=== PATIENT | female | born 1995 | race Two or more races ===

== ENCOUNTER 2016-08-15 11:31 | Emergency (ER) | payer OTHER ==
[2016-08-15 11:35] VITALS: BP 108/75
--- NOTE | 2016-08-15 11:37 | PHYS DOC ---
Past History Past Medical History: No Pertinent History Past Surgical History: No Surgical History Alcohol Use: None Drug Use: None Adult General Chief Complaint Chief Complaint: NAUSEA/VOMITING/DIARRHEA HPI HPI 20-year-old female presenting to the emergency department for evaluation of nausea vomiting diarrhea and abdominal cramping. Patient says that she woke up with these symptoms and says that she vomited yellowish liquid the first time and has been dry heaving since that time. Diarrhea is watery and nonbloody. She had a steroid injection in her left shoulder yesterday and is concerned that this is somehow related to her symptoms today. She says that she feels slightly dizzy and still nauseated. Abdominal cramping is diffuse and nonfocal and comes and goes. Review of Systems Review of Systems Constitutional: Denies fever or chills [] GI: + abdominal pain, nausea, vomiting, diarrhea [] : Denies dysuria or hematuria [] Musculoskeletal: Denies back pain or joint pain [] Integument: Denies rash or skin lesions [] Neurologic: Denies headache, focal weakness. + dizziness Allergies Allergies Allergies Coded Allergies Type Severity Reaction Last Updated Verified No Known Drug Allergies 07/22/15 No Physical Exam Physical Exam Constitutional: Well developed, well nourished, no acute distress, non-toxic appearance. [] Cardiovascular:Heart rate regular rhythm, no murmur [] Lungs & Thorax: Bilateral breath sounds clear to auscultation [] Abdomen: Bowel sounds normal, soft, no tenderness, no masses, no pulsatile masses. [] Skin: Warm, dry, no erythema, no rash. Left shoulder appears clean dry and intact with no redness or warmth or swelling. Extremities: No tenderness, no cyanosis, no clubbing, ROM intact, no edema. [] Neurologic: Alert and oriented X 3, normal motor function, normal sensory function, no focal deficits noted. [] EKG EKG [] Radiology/Procedures Radiology/Procedures [] Course & Med Decision Making Course & Med Decision Making Patient with symptoms consistent with a viral gastroenteritis. I do not think that this has anything to do with her steroid shot isn't looked up cortisone and and had no listed side effects of nausea vomiting or diarrhea. It may be blunting her immune response to any viral infection but not necessarily caused it. Patient will get screening labs IV fluids Zofran and Toradol and then be reassessed. Labs are very unremarkable she has leukocytosis likely related to steroid. Her repeat abdominal exam is benign and she is not drinking water and eating crackers without any difficulty swallowing discharge her with Zofran and instructed to drink plenty of fluids including water and Gatorade and come back to the ER sooner with any worsening pain fevers vomiting or additional concerns. Patientt aware and agreeable with plan and verbalized understanding of the above instructions. Dragon Disclaimer Dragon Disclaimer This chart was dictated in whole or in part using Voice Recognition software in a busy, high-work load, and often noisy Emergency Department environment. It may contain unintended and wholly unrecognized errors or omissions. Departure Departure: Impression: Primary Impression: Nausea & vomiting Additional Impressions: Diarrhea Abdominal pain Disposition: 01 HOME, SELF-CARE Condition: GOOD Referrals: ENDY ALEX (PCP) Patient Instructions: Viral Gastroenteritis Scripts Ondansetron (Zofran Odt)4 Mg Tab.rapdis1 Tab SL Q8HRS #10 TAB Prov:RAFY GARCIA DO 08/15/16 Problem Qualifiers Primary Impression: Nausea & vomiting Vomiting type: unspecified Vomiting Intractability: non-intractable Qualified Code: R11.2 - Nausea with vomiting, unspecified RAFY GARCIA DO Aug 15, 2016 11:37
[2016-08-15] MEDS ORDERED: ONDANSETRON PF 4 MG/2 ML VIAL. IV ONE (12:00)
[2016-08-15] MEDS ORDERED: IV NORMAL SALINE 1,000ML 1,000 ML IV ONE (12:00)
[2016-08-15] MEDS ORDERED: KETOROLAC 30 MG/ML VIAL. IV ONE (12:00)
[2016-08-15 12:06] LABS: BASO % 0 % (0-3); EOS # 0.1 x10^3/uL (0.0-0.7); EOS % 1 % (0-3); HEMATOCRIT 46.8 % (36.0-47.0); HEMOGLOBIN 15.6 g/dL (12.0-15.5); LYMPH # 1.2 x10^3/uL (1.0-4.8); LYMPH % 8 % (24-48); MEAN CORPUSCULAR HEMOGLOBIN 29 pg (25-35); MEAN CORPUSCULAR HGB CONC 33 g/dL (31-37); MEAN CORPUSCULAR VOLUME 88 fL (79-100); MONO # 0.8 x10^3/uL (0.0-1.1); MONO % 5 % (0-9); NEUT # 13.3 x10^3uL (1.8-7.7); NEUT % 87 % (31-73); PLATELET COUNT 259 x10^3/uL (140-400); RED BLOOD COUNT 5.34 x10^6/uL (3.50-5.40); RED CELL DISTRIBUTION WIDTH 12.7 % (11.5-14.5); WHITE BLOOD COUNT 15.4 x10^3/uL (4.0-11.0)
[2016-08-15 12:19] LABS: ALBUMIN 4.6 g/dL (3.4-5.0); CALCIUM 9.6 mg/dL (8.5-10.1); CREATININE 0.9 mg/dL (0.6-1.0); GFR 79.8; POTASSIUM 3.9 mmol/L (3.5-5.1); TOTAL PROTEIN 9.1 g/dL (6.4-8.2)
[2016-08-15] MEDS ORDERED: ONDA4TAB10 SL (13:27)
[2016-08-15 13:40] LABS: % EOS 1 % (0-5); % LYMPHS 8 % (24-48); % MONOS 3 % (0-10); % SEGS 88 % (35-66); PLT ESTIMATE ADEQUATE (ADEQUATE)
== END 2016-08-15 13:45 | disposition home or self-care (01) ==
LOC: ER 11:31
DX: R11.2 Nausea with vomiting, unspecified (principal); R19.7 Diarrhea, unspecified; R10.9 Unspecified abdominal pain
CPT/HCPCS: 36415; 80053; 83690; 85007; 85027; 96361; 96374; 96375; 99284; J1885; J2405; J7030

== ENCOUNTER 2017-01-17 01:27 | Emergency (ER) | payer OTHER ==
[~2017-01-17] VITALS: Ht 160 cm; Wt 66.0 kg
[~2017-01-17 01:27] MED LIST: ONDA4TAB10 SL
[2017-01-17 01:30] VITALS: BP 115/63
[2017-01-17] MEDS ORDERED: KETOROLAC 60 MG/2 ML VIAL. IM ONE (02:30)
[2017-01-17] MEDS ORDERED: ONDANSETRON ODT 4 MG TAB.RAPDIS PO ONE (02:30)
[2017-01-17 02:50] LABS: CLARITY,URINE HAZY; COLOR,URINE YELLOW
[2017-01-17 02:51] LABS: BILIRUBIN,URINE NEG (NEG); GLUCOSE,URINE NEG (NEG); NITRITE,URINE NEG (NEG); UROBILINOGEN,URINE 1 mg/dL (0.2 mg/dL)
--- NOTE | 2017-01-17 03:04 | ED.ADGEN ---
Past History Past Medical History: No Pertinent History Past Surgical History: No Surgical History Alcohol Use: None Drug Use: None Adult General Chief Complaint Chief Complaint Left-sided flank pain HPI HPI Patient is a 21-year-old female presents with intermittent left-sided in pain symptoms yesterday. It is described as dull throbbing, moderate to severe as with palpation movement. Patient denies nausea, vomiting. She reports urinary frequency and urgency. Denies hematuria. No history of kidney stones. Fever chills or sweats. No other acute symptoms or complaints. No prior abdominal surgeries. Last menstrual period was 3 weeks ago. Review of Systems Review of Systems ROS as per HPI. Current Medications Current Medications Current Medications Medications (Trade) Dose Ordered Sig/Pipo Start Time Stop Time Status Last Admin Dose Admin Ketorolac Tromethamine (Toradol) 60 mg 1X ONCE 01/17/17 02:30 01/17/17 02:31 DC 01/17/17 02:22 60 MG Ondansetron HCl (Zofran Odt) 4 mg 1X ONCE 01/17/17 02:30 01/17/17 02:31 DC 01/17/17 02:23 4 MG Allergies Allergies Allergies Coded Allergies Type Severity Reaction Last Updated Verified No Known Drug Allergies 07/22/15 No Physical Exam Physical Exam Constitutional: Well developed, well nourished, no acute distress, non-toxic appearance. [] HENT: Normocephalic, atraumatic, bilateral external ears normal, oropharynx moist, no oral exudates, nose normal. [] Eyes: PERRLA, EOMI, conjunctiva normal, no discharge. [] Neck: Normal range of motion, no tenderness, supple, no stridor. [] Cardiovascular:Heart rate regular rhythm, no murmur [] Lungs & Thorax: Bilateral breath sounds clear to auscultation [] Abdomen: Bowel sounds normal, soft, no tenderness, no masses, no pulsatile masses. [] Skin: Warm, dry, no erythema, no rash. [] Back: No tenderness, no CVA tenderness. [] Extremities: No tenderness, no cyanosis, no clubbing, ROM intact, no edema. [] Neurologic: Alert and oriented X 3, normal motor function, normal sensory function, no focal deficits noted. [] Psychologic: Affect normal, judgement normal, mood normal. [] Current Patient Data Vital Signs Vital Signs Date Time Temp Pulse Resp B/P (MAP) Pulse Ox O2 Delivery O2 Flow Rate FiO2 01/17/17 01:30 97.5 72 20 98 Room Air Lab Results Laboratory Tests Test 01/17/17 01:53 01/17/17 02:30 POC Urine HCG, Qualitative hcg negative (Negative) Urine Collection Type Unknown Urine Color Yellow Urine Clarity Hazy Urine pH 6.0 Urine Specific [place] >=1.030 Urine Protein 100 mg/dl (NEG-TRACE) Urine Glucose (UA) Neg mg/dL (NEG) Urine Ketones (Stick) Neg mg/dL (NEG) Urine Blood Large (NEG) Urine Nitrite Neg (NEG) Urine Bilirubin Neg (NEG) Urine Urobilinogen Dipstick 1 mg/dL (0.2 mg/dL) Urine Leukocyte Esterase Neg (NEG) EKG EKG [] Radiology/Procedures Radiology/Procedures [CT abdomen and pelvis without contrast:] Course & Med Decision Making Course & Med Decision Making Pertinent Labs and Imaging studies reviewed. (See chart for details) [Left flank pain negative test, hematuria present. CT abdomen pelvis] Final Impression Final Impression [] Problems: Dragon Disclaimer Dragon Disclaimer This electronic medical record was generated, in whole or in part, using a voice recognition dictation system. PABLO BEGUM DO Jan 17, 2017 03:04
--- NOTE | 2017-01-17 03:45 | RAD ---
INDICATION: [id number] Severe left sided flank pain COMPARISON: October 05, 2015 TECHNIQUE: Axial CT images were obtained through the abdomen and pelvis without intravenous contrast. Limited assessment of solid organ structures and vasculature secondary to lack of intravenous contrast. One or more of the following individualized dose reduction techniques were utilized for this examination: 1. Automated exposure control; 2. Adjustment of the mA and/or kV according to patient size; 3. Use of iterative reconstruction technique. FINDINGS: Chest Base: Tiny nodules at left lung base. Given the patient's age these are most likely benign unless they have a history of neoplasm. Vessels: No abdominal aortic aneurysm. Liver/Biliary: No intrahepatic biliary duct dilation. Pancreas: No peripancreatic edema. Spleen: Normal. Kidneys/Adrenal: No hydronephrosis. Bladder: No definite adjacent inflammation. GI: No free air. No bowel dilation to suggest obstruction. Moderate stool and proximal colon. Repeat demonstration of a calcification within the right hemipelvis. Small free fluid. IMPRESSION: 1. No definite hydronephrosis or radiopaque obstructive ureter stone 2. The suspected appendix does not have definite adjacent inflammation. Electronically signed by: Freddy Gillespie MD (01/17/2017 3:41 AM) [facility]
== END 2017-01-17 03:55 | disposition home or self-care (01) ==
LOC: ER 01:27
DX: R31.9 Hematuria, unspecified (principal); R35.0 Frequency of micturition; R39.15 Urgency of urination
CPT/HCPCS: 74176; 81003; 81025; 87086; 96372; 99285; J1885; Q0162

== ENCOUNTER → 2020-02-24 | Outpatient (CLI) | payer OTHER ==
--- NOTE | 2020-02-24 11:35 | RAD ---
EXAM: Pelvic sonogram. HISTORY: Pain. TECHNIQUE: Transabdominal and transvaginal sonographic imaging of the pelvis was performed. COMPARISON: CT dated 01/17/2017. FINDINGS: The uterus measures 8.0 x 6.2 x 3.0 cm. The endometrial stripe measures 1.1 cm in thickness. The ovaries are normal in size and demonstrate normal blood flow. There is a 2.3 cm complex right ovarian cyst with internal echoes and 7 mm echogenic posterior shadowing component likely due to calcification. This demonstrates no blood flow. There is a small amount of pelvic free fluid. IMPRESSION: 1. 2.3 cm complex right ovarian cyst with internal echoes and suspected calcification. 2. Small amount of pelvic free fluid, within physiologic limits for a premenopausal female. Electronically signed by: Edwige Watson MD (02/24/2020 11:33 AM) [id number]
== END ==
LOC: US 10:38
PROVIDERS: ATTEND Obstetrics & Gynecology
DX: N83.291 Other ovarian cyst, right side (principal)
CPT/HCPCS: 76830; 76856

== ENCOUNTER 2020-02-29 03:42 | Emergency (ER) | payer OTHER ==
[~2020-02-29] VITALS: Ht 160 cm; Wt 66.0 kg
--- NOTE | 2020-02-29 04:30 | EKG ---
[address] [address] Test Date: 2020-02-29 Test Time: 04:24:57 Pat Name: EZRA MEDINA Department: Room: Gender: F Sweeping [employer]ender: : 1995 Requested By: ROBERT BALLARD Order Number: [id number] Reading MD: Measurements Intervals [place] Rate: 85 P: 53 DE: 146 QRS: 76 QRSD: 82 T: 21 QT: 362 QTc: 431 Interpretive Statements SINUS RHYTHM NO SPECIFIC ECG ABNORMALITIES RI6.02 No previous ECG available for comparison
[2020-02-29 04:53] LABS: CREATININE 0.8 mg/dL (0.6-1.0); GFR 88.1; POTASSIUM 3.6 mmol/L (3.5-5.1)
[2020-02-29 05:05] LABS: ALBUMIN 4.3 g/dL (3.4-5.0); ALBUMIN/GLOBULIN RATIO 1.1 (1.0-1.7); TOTAL BILIRUBIN 0.3 mg/dL (0.2-1.0); TOTAL PROTEIN 8.3 g/dL (6.4-8.2)
--- NOTE | 2020-02-29 05:16 | RAD ---
Study: CR CHEST AP ONLY Indication: Overdose. Comparison: None. Findings: Unremarkable cardiomediastinal silhouette and stefany. No focal airspace infiltrate, pleural effusion or pneumothorax. Impression: Unremarkable radiographic appearance of the chest. Electronically signed by: ELINA LIZ MD (02/29/2020 5:14 AM) [id number]
--- NOTE | 2020-02-29 05:18 | PHYS DOC ---
Past History Past Medical History: Depression, Other Additional Past Medical Histor: adhd Past Surgical History: No Surgical History Alcohol Use: Occasionally Drug Use: None Adult General Chief Complaint Chief Complaint: OVERDOSE HPI HPI Patient is 24-year-old female who presents to the emergency room after taking 4 of her Adderall and drinking a large amount of alcohol. She is on extended release Adderall. She has no complaints but is concerned that it could have hurt her. She denies any suicidal ideations. She states she was trying to get high. Review of Systems Review of Systems Complete ROS is negative unless otherwise documented in HPI Allergies Allergies Allergies Coded Allergies Type Severity Reaction Last Updated Verified No Known Drug Allergies 07/22/15 No Physical Exam Physical Exam General: Awake, alert, NAD. Well Nourished, well hydrated. Cooperative HEENT: Atraumatic, EOMI, PERRL, airway patent, moist oral mucosa Neck: Supple, trachea midline Respiratory: CTA bilaterally, normal effort, no wheezing/crackles CV: RRR, no murmur, cap refill <2 GI: Soft, nondistended, nontender, no masses MSK: No obvious deformities Skin: Warm, dry, intact Neuro: A&O x3, speech NL, sensory and motor grossly intact, no focal deficits Psych: Normal affect, normal mood, not suicidal or homicidal Current Patient Data Vital Signs Vital Signs Date Time Temp Pulse Resp B/P (MAP) Pulse Ox O2 Delivery O2 Flow Rate FiO2 02/29/20 03:42 98.4 124 16 131/89 (103) 98 Room Air Lab Results Laboratory Tests Test 02/29/20 03:59 02/29/20 04:15 POC Urine HCG, Qualitative hcg negative (Negative) Sodium Level 142 mmol/L (136-145) Potassium Level 3.6 mmol/L (3.5-5.1) Chloride Level 105 mmol/L (98-107) Carbon Dioxide Level 24 mmol/L (21-32) Anion Gap 13 (6-14) Blood Urea Nitrogen 8 mg/dL (7-20) Creatinine 0.8 mg/dL (0.6-1.0) Estimated GFR (Cockcroft-Gault) 88.1 BUN/Creatinine Ratio 10 (6-20) Glucose Level 104 mg/dL (70-99) H Calcium Level 9.0 mg/dL (8.5-10.1) Total Bilirubin 0.3 mg/dL (0.2-1.0) Aspartate Amino Transferase (AST) 12 U/L (15-37) L Alanine Aminotransferase (ALT) 18 U/L (14-59) Alkaline Phosphatase 88 U/L (46-116) Troponin I Quantitative < 0.017 ng/mL (0-0.055) UB-Ose-N-Type Natriuretic Peptide 9 pg/mL (0-124) Total Protein 8.3 g/dL (6.4-8.2) H Albumin 4.3 g/dL (3.4-5.0) Albumin/Globulin Ratio 1.1 (1.0-1.7) EKG EKG [] Radiology/Procedures Radiology/Procedures [] Heart Score Risk Factors: Risk Factors: DM, Current or recent (<one month) smoker, HTN, HLP, family history of CAD, obesity. Risk Scores: Risk Factors: DM, Current or recent (<one month) smoker, HTN, HLP, family history of CAD, obesity. Course & Med Decision Making Course & Med Decision Making Pertinent Labs and Imaging studies reviewed. (See chart for details) Adderall with alcohol and an attempt to get high. She is sober at this time. D patient's test results and vitals while in the ED were fully reviewed and d iscussed with the patient. Patient is stable and at this time does not need admission to the hospital. We have discussed strict return precautions and the importance of following up with their Primary Care Physician. Patient stated understanding and was given an opportunity to ask any questions. Patient is in agreement with plan. Dragon Disclaimer Dragon Disclaimer This electronic medical record was generated, in whole or in part, using a voice recognition dictation system. Departure Departure: Impression: Primary Impression: Overdose Disposition: 01 DC HOME SELF CARE/HOMELESS Condition: STABLE Referrals: PCP,UNKNOWN (PCP) Patient Instructions: Overdose, Adult ROBERT BALLARD MD Feb 29, 2020 05:18
[2020-02-29 05:29] LABS: AMPHETAMINE/METHAMPHETAMINE POS (NEG); BARBITURATES NEG (NEG); BENZODIAZEPINES NEG (NEG); CANNABINOIDS NEG (NEG); COCAINE NEG (NEG); METHADONE NEG (NEG); OPIATES NEG (NEG); PHENCYCLIDINE NEG (NEG)
[2020-02-29 05:30] VITALS: BP 140/72
[2020-02-29 05:31] LABS: ETHANOL 170 mg/dL (0-10); SALIC < 2.8 mg/dL (2.8-20.0)
[2020-02-29 05:32] LABS: ACETAMIN < 2.0 mcg/mL (10-30)
== END 2020-02-29 05:30 | disposition home or self-care (01) ==
LOC: ER 03:42
DX: T43.621A Poisoning by amphetamines, accidental (unintentional), initial encounter (principal); F32.9 Major depressive disorder, single episode, unspecified; F90.9 Attention-deficit hyperactivity disorder, unspecified type; Y92.89 Other specified places as the place of occurrence of the external cause
CPT/HCPCS: 36415; 71045; 80053; 80307; 80329; 81025; 82550; 83880; 84484; 93005; 99285; G0480

== ENCOUNTER 2020-09-06 20:28 | Emergency (ER) | payer OTHER ==
[~2020-09-06] VITALS: Ht 160 cm; Wt 63.6 kg
--- NOTE | 2020-09-06 21:09 | PHYS DOC ---
Past History Past Medical History: Depression, Migraines, Other Additional Past Medical Histor: adhd Past Surgical History: Other Additional Past Surgical Histo: Endometriosis Alcohol Use: None Drug Use: None General Adult EDM: Chief Complaint: HEADACHE HPI: HPI: 24-year-old female presents with headache. She has had a migraine for the last 6 days. She states that it is a global pressure sensation. She has tried extra strength Tylenol and it has not helped. She has had migraines this bad in the past. She denies any falls or trauma. She has some mild blurred vision on occasion and is photophobic. She denies fever or chills. She recently was diagnosed with strep about 2 weeks ago and treated. She was diagnosed with fluid in her left ear by urgent care earlier this morning and placed on a steroid. Review of Systems: Review of Systems: Constitutional: Denies fever or chills Eyes: Denies change in visual acuity HENT: Denies nasal congestion or sore throat Respiratory: Denies cough or shortness of breath Cardiovascular: Denies chest pain or edema GI: Denies abdominal pain, nausea, vomiting, bloody stools or diarrhea : Denies dysuria Musculoskeletal: Denies back pain or joint pain Integument: Denies rash Neurologic: Headache. Denies focal weakness or sensory changes Endocrine: Denies polyuria or polydipsia Lymphatic: Denies swollen glands Psychiatric: Denies depression or anxiety Allergies: Allergies: Allergies Coded Allergies Type Severity Reaction Last Updated Verified No Known Drug Allergies 07/22/15 No Physical Exam: PE: Constitutional: Well developed, well nourished, no acute distress, non-toxic appearance. [] HENT: Normocephalic, atraumatic, bilateral external ears normal, oropharynx moist, no oral exudates, nose normal. Left tympanic membrane with fluid but no signs of infection. Right tympanic membrane normal [] Eyes: PERRLA, EOMI, conjunctiva normal, no discharge. Photophobia. [] Neck: Normal range of motion, no tenderness, supple, no stridor. [] Cardiovascular: Heart rate regular rhythm, no murmur [] Lungs & Thorax: Bilateral breath sounds clear to auscultation [] Abdomen: Bowel sounds normal, soft, no tenderness, no masses, no pulsatile masses. [] Skin: Warm, dry, no erythema, no rash. [] Back: No tenderness, no CVA tenderness. [] Extremities: No tenderness, no cyanosis, no clubbing, ROM intact, no edema. [] Neurologic: Alert and oriented X 3, normal motor function, normal sensory function, no focal deficits noted. [] Psychologic: Affect normal, judgement normal, mood normal. [] Current Patient Data: Vital Signs: Vital Signs Date Time Temp Pulse Resp B/P (MAP) Pulse Ox O2 Delivery O2 Flow Rate FiO2 09/06/20 20:45 98.4 106 16 140/85 (103) 98 EKG: EKG: [] Radiology/Procedures: Radiology/Procedures: [] Heart Score: C/O Chest Pain: N/A Risk Factors: Risk Factors: DM, Current or recent (<one month) smoker, HTN, HLP, family history of CAD, obesity. Risk Scores: Score 0 - 3: 2.5% MACE over next 6 weeks - Discharge Home Score 4 - 6: 20.3% MACE over next 6 weeks - Admit for Clinical Observation Score 7 - 10: 72.7% MACE over next 6 weeks - Early Invasive Strategies Course & Med Decision Making: Course & Med Decision Making Pertinent Labs and Imaging studies reviewed. (See chart for details) Patient's labs are significant for an elevated white count. This is likely due to the steroids. For her headache I gave her 1 L normal saline, 30 mg of Toradol, 25 mg of Benadryl, 10 mg of Reglan. Patient states she is feeling much better at this time. She feels like she can go home. She is stable for discharge at this time. [] Dragon Disclaimer: Mehdi Disclaimer: This electronic medical record was generated, in whole or in part, using a voice recognition dictation system. Departure Departure: Impression: Primary Impression: Migraine Qualified Codes: G43.911 - Migraine, unspecified, intractable, with status migrainosus Disposition: 02 SHORT TERM HOSPITAL Condition: IMPROVED Referrals: MARTÍNEZ LEZAMA-C (PCP) Patient Instructions: Migraine Headache, [id number] PABLO NORIEGA DO September 06, 2020 21:09
[2020-09-06] MEDS ORDERED: diphenhydrAMINE 50 MG/ML VIAL IVP ONE (21:30)
[2020-09-06] MEDS ORDERED: KETOROLAC 30 MG/ML VIAL. IVP ONE (21:30)
[2020-09-06] MEDS ORDERED: IV NORMAL SALINE 1,000ML 1,000 ML IV ONE (21:30)
[2020-09-06] MEDS ORDERED: METOCLOPRAMIDE HCL 10 MG/2 ML VIAL. IVP ONE (21:30)
[2020-09-06 21:37] LABS: BASO % 0 % (0-3); EOS % 0 % (0-3); HEMATOCRIT 41.6 % (36.0-47.0); HEMOGLOBIN 14.1 g/dL (12.0-15.5); LYMPH # 1.1 x10^3/uL (1.0-4.8); LYMPH % 7 % (24-48); MEAN CORPUSCULAR HEMOGLOBIN 30 pg (25-35); MEAN CORPUSCULAR HGB CONC 34 g/dL (31-37); MEAN CORPUSCULAR VOLUME 88 fL (79-100); MONO # 0.3 x10^3/uL (0.0-1.1); MONO % 2 % (0-9); NEUT % 91 % (31-73); PLATELET COUNT 284 x10^3/uL (140-400); RED BLOOD COUNT 4.75 x10^6/uL (3.50-5.40); RED CELL DISTRIBUTION WIDTH 12.5 % (11.5-14.5); WHITE BLOOD COUNT 15.4 x10^3/uL (4.0-11.0)
[2020-09-06 21:40] LABS: CALCIUM 9.2 mg/dL (8.5-10.1); GFR 68.1; POTASSIUM 4.3 mmol/L (3.5-5.1)
[2020-09-06 21:46] LABS: ALBUMIN 3.8 g/dL (3.4-5.0); ALBUMIN/GLOBULIN RATIO 0.9 (1.0-1.7); TOTAL BILIRUBIN 0.3 mg/dL (0.2-1.0)
[2020-09-06 21:58] LABS: BACTERIA,URINE 0 /HPF (0-FEW); BILIRUBIN,URINE NEG (NEG); CLARITY,URINE CLEAR; COLOR,URINE YELLOW; GLUCOSE,URINE NEG (NEG); NITRITE,URINE NEG (NEG); RBC,URINE 0 /HPF (0-2); SQUAMOUS EPITHELIAL CELL,UR MOD /LPF; UROBILINOGEN,URINE 0.2 mg/dL (0.2 mg/dL); WBC,URINE 0 /HPF (0-4)
[2020-09-06 22:16] LABS: % LYMPHS 8 % (24-48); % MONOS 3 % (0-10); % SEGS 89 % (35-66); PLT ESTIMATE ADEQUATE (ADEQUATE)
[2020-09-06 22:35] VITALS: BP 108/65
== END 2020-09-06 22:54 | disposition home or self-care (01) ==
LOC: ER 20:28
DX: G43.909 Migraine, unspecified, not intractable, without status migrainosus (principal); F32.9 Major depressive disorder, single episode, unspecified
CPT/HCPCS: 36415; 80053; 81001; 81025; 85007; 85025; 96361; 96374; 96375; 99284; J1200; J1885; J2765; J7030

== ENCOUNTER 2020-11-12 16:55 | Emergency (ER) | payer OTHER ==
[~2020-11-12] VITALS: Ht 160 cm; Wt 63.6 kg
[2020-11-12 17:08] VITALS: BP 121/78
--- NOTE | 2020-11-12 19:08 | PHYS DOC ---
Past History Past Medical History: Depression, Migraines, Other Additional Past Medical Histor: adhd (JANET REDDY APRN) Past Surgical History: Other Additional Past Surgical Histo: Endometriosis (JANET REDDY APRN) Alcohol Use: None Drug Use: None (JANET REDDY APRN) General Adult EDM: Chief Complaint: ABDOMINAL PAIN HPI: HPI: Patient is a 25-year-old female being seen in the ER today for bilateral lower abdominal pain, decreased appetite, diarrhea, nausea. Patient reports that over the last 3 days she has had blood-tinged stools. Patient currently rates her pain 3 out of 10 it is intermittent and at its worst is 8 out of 10. No treatment prior to arrival. Patient denies vomiting, fevers, vaginal bleeding, urinary frequency/urgency, dysuria. (JANET REDDY APRN) Review of Systems: Review of Systems: 14 body systems of the review of systems have been reviewed. See HPI for pertinent positive and negative responses, otherwise all other systems are negative, nonpertinent or noncontributory (JANET REDDY APRN) Allergies: Allergies: Allergies Coded Allergies Type Severity Reaction Last Updated Verified No Known Drug Allergies 07/22/15 No (JANET REDDY APRN) Physical Exam: PE: Constitutional: Well developed, well nourished, no acute distress, non-toxic appearance. [] HENT: Normocephalic, atraumatic Eyes: PERRL, conjunctiva normal, no discharge. [] Neck: Normal range of motion, no stridor Cardiovascular:Heart rate regular rhythm, no murmur [] Lungs & Thorax: Bilateral breath sounds clear to auscultation [] Abdomen: Bowel sounds normal, soft, no masses, no pulsatile masses, left lower quadrant pain with palpation, negative rebound tenderness, negative Rovsing sign. [] Skin: Warm, dry, no erythema, no rash. [] Back: No tenderness, no CVA tenderness. [] Extremities: No tenderness, no cyanosis, no clubbing, ROM intact, no edema. [] Neurologic: Alert and oriented X 3, normal motor function, normal sensory function, no focal deficits noted. [] Psychologic: Affect normal, judgement normal, mood normal. [] (JANET REDDY APRN) Current Patient Data: Labs: Laboratory Tests Test 11/12/20 18:35 11/12/20 18:40 11/12/20 19:00 Urine Collection Type Unknown Urine Color Yellow Urine Clarity Clear Urine pH 5.5 Urine Specific Lamont >=1.030 Urine Protein Neg Urine Glucose (UA) Neg mg/dL Urine Ketones (Stick) 15 mg/dL Urine Blood Trace Urine Nitrite Neg Urine Bilirubin Small Urine Urobilinogen Dipstick 0.2 mg/dL Urine Leukocyte Esterase Neg Urine RBC Occ /HPF Urine WBC Occ /HPF Urine Squamous Epithelial Cells Mod /LPF Urine Bacteria Few /HPF Urine Mucus Mod /LPF White Blood Count 11.9 x10^3/uL Red Blood Count 4.25 x10^6/uL Hemoglobin 12.8 g/dL Hematocrit 37.2 % Mean Corpuscular Volume 88 fL Mean Corpuscular Hemoglobin 30 pg Mean Corpuscular Hemoglobin Concent 35 g/dL Red Cell Distribution Width 12.2 % Platelet Count 257 x10^3/uL Neutrophils (%) (Auto) 55 % Lymphocytes (%) (Auto) 33 % Monocytes (%) (Auto) 10 % Eosinophils (%) (Auto) 1 % Basophils (%) (Auto) 0 % Neutrophils # (Auto) 6.6 x10^3uL Lymphocytes # (Auto) 3.9 x10^3/uL Monocytes # (Auto) 1.2 x10^3/uL Eosinophils # (Auto) 0.2 x10^3/uL Basophils # (Auto) 0.0 x10^3/uL Sodium Level 140 mmol/L Potassium Level 3.2 mmol/L Chloride Level 103 mmol/L Carbon Dioxide Level 25 mmol/L Anion Gap 12 Blood Urea Nitrogen 12 mg/dL Creatinine 1.0 mg/dL Estimated GFR (Cockcroft-Gault) 67.6 BUN/Creatinine Ratio 12 Glucose Level 84 mg/dL Calcium Level 8.7 mg/dL Total Bilirubin 0.3 mg/dL Aspartate Amino Transf (AST/SGOT) 17 U/L Alanine Aminotransferase (ALT/SGPT) 24 U/L Alkaline Phosphatase 74 U/L Total Protein 7.7 g/dL Albumin 3.8 g/dL Albumin/Globulin Ratio 1.0 Lipase 48 U/L Bedside Urine HCG, Qualitative hcg negative Current Medications Medications (Trade) Dose Ordered Sig/Pipo Route PRN Reason Start Time Stop Time Status Last Admin Dose Admin Iohexol (Omnipaque 300 Mg/ml) 75 ml 1X ONCE IV 11/12/20 19:15 11/12/20 19:16 DC 11/12/20 19:12 Sodium Chloride 1,000 ml @ 1,000 mls/hr 1X ONCE IV 11/12/20 19:15 11/12/20 20:14 11/12/20 19:32 Ondansetron HCl (Zofran) 4 mg 1X ONCE IVP 11/12/20 19:15 11/12/20 19:16 DC 11/12/20 19:32 Fentanyl Citrate (Fentanyl 2ml Vial) 50 mcg 1X ONCE IVP 11/12/20 19:15 11/12/20 19:16 DC 11/12/20 19:33 Laboratory Tests Test 11/12/20 19:00 POC Urine HCG, Qualitative hcg negative (Negative) Vital Signs: Vital Signs Date Time Temp Pulse Resp B/P (MAP) Pulse Ox O2 Delivery O2 Flow Rate FiO2 11/12/20 17:08 98.5 106 16 121/78 99 (JANET REDDY APRN) EKG: EKG: [] (JANET REDDY APRN) Radiology/Procedures: Radiology/Procedures: PROCEDURE: CT ABD PELV W/ IV CONTRST ONLY Exam: CT of abdomen and pelvis with contrast INDICATION: Lower abdominal pain TECHNIQUE: Sequential axial images through the abdomen and pelvis obtained following the administration of 75 mL of Omni 300 IV contrast. Sagittal and coronal reformatted images were reconstructed from the axial data and reviewed. Exposure: One or more of the following in the visualized dose reduction techni ques were utilized for this examination: 1. Automated exposure control 2. Adjustment of the MA and/or KV according to patient size 3. Use of iterative of reconstructive technique Comparisons: 01/17/2017 FINDINGS: Heart size is normal. No pericardial. Visualized lung bases are clear. No pleural effusion. Liver, spleen, pancreas and adrenals are unremarkable. Gallbladder surgically absent. No perinephric inflammation or hydronephrosis. No renal or ureteral calculi are identified. Bladder is decompressed not well evaluated. Uterus not enlarged. Cystic lesion at the right adnexa measuring up to 3.6 cm in long axis. There is mild wall thickening involving the colon with adjacent stranding. Small bowel is unremarkable. Small amount of free fluid noted in the pelvis. No free intra-abdominal air. Abdominal aorta has a normal course and caliber. No enlarged intra-abdominal lymph nodes are identified. No suspicious osseous lesions or acute fractures. IMPRESSION: 1. Findings of diffuse colitis may be infectious or inflammatory in etiology. 2. Cystic lesion at the right adnexa measuring 3.6 cm in diameter favored represent cyst within the right ovary. Electronically signed by: Taty Whittington MD (11/12/2020 7:41 PM) [facility] DICTATED AND SIGNED BY: TATY WHITTINGTON MD DATE: 11/12/201936 CC: PABLO NORIEGA DO; MARTÍNEZ LEZAMA HIDE SORTER-C; JANET REDDY APRN ~MTH0 0 (JANET REDDY APRN) Heart Score: C/O Chest Pain: No Risk Factors: Risk Factors: DM, Current or recent (<one month) smoker, HTN, HLP, family history of CAD, obesity. Risk Scores: Score 0 - 3: 2.5% MACE over next 6 weeks - Discharge Home Score 4 - 6: 20.3% MACE over next 6 weeks - Admit for Clinical Observation Score 7 - 10: 72.7% MACE over next 6 weeks - Early Invasive Strategies (JANET REDDY APRN) Course & Med Decision Making: Course & Med Decision Making Pertinent Labs and Imaging studies reviewed. (See chart for details) Patient is a 25-year-old female being seen for abdominal pain, diarrhea, decreas ed appetite, nausea, blood-tinged stools. Work-up in the ER consisted of blood work, UA, CT scan of abdomen. UA unremarkable, leukocytosis, hypokalemia noted. Potassium replaced in the ER. CT scan of abdomen showed colitis. Patient treated with antibiotic in the ER and discharged home with prescription. I discussed with patient all findings and diagnostic testing as well as the need to follow-up with PCP for further evaluation and treatment or return to the ER if any new or worsening symptoms. Strict return precautions were also discussed at length. Patient voiced understanding and agreement with the plan. Patient is hemodynamically stable at the time of disposition. (JANET REDDY APRN) Dragon Disclaimer: Dragon Disclaimer: This electronic medical record was generated, in whole or in part, using a voice recognition dictation system. (JANET REDDY APRN) Attending Co-Sign The patient was seen and interviewed as well as examined at the bedside. The chart was reviewed. The case was discussed. Agree with the plan of care. (PABLO NORIEGA DO) Departure Departure: Impression: Primary Impression: Abdominal pain Qualified Codes: R10.32 - Left lower quadrant pain Additional Impression: Diarrhea Qualified Codes: R19.7 - Diarrhea, unspecified Disposition: HOME / SELF CARE / HOMELESS Condition: GOOD Referrals: MARTÍNEZ LEZAMA (PCP) Patient Instructions: Colitis Additional Instructions: You were seen in the ER today for abdominal pain, diarrhea, nausea. You were noted to have an elevated white blood cell count which is indicative of an i nfection. You did have a low potassium level and this was treated in the ER. Please make sure that you are eating potassium rich foods when you are home like green leafy vegetables. We lose a lot of potassium with diarrhea. Please make sure that you are increasing your fluid intake to prevent dehydration. Your CT scan showed colitis which is inflammation of your intestines and colon. Sometimes this can be caused by a virus or bacteria. We are treating you with an antibiotic please start and finish the antibiotic completely. Try to stick to a clear liquid diet over the next 24 hours. You can advance your diet as tolerated but following the BRAT diet may be beneficial to you. This involves eating foods like banana, rice, applesauce, toast. Avoid spicy or fatty foods. If you develop severe abdominal pain, increased blood in your stools, uncontrollable nausea or vomiting, fevers, shortness of breath, chest pain please return to the ER immediately. EMERGENCY DEPARTMENT GENERAL DISCHARGE INSTRUCTIONS Thank you for coming to [facility] (ED) today and trusting us with you care. We trust that you had a positivie experience in our Emergency Department. If you wish to speak to the department management, you may call the director at . YOUR FOLLOW UP INSTRUCTIONS ARE FOLLOWS: 1. Do you have a private Doctor? If you do not have a private doctor, please ask for a resource list of physicians or clinics that may be able to assist you with follow up care. 2. The Emergency Physician has interpreted your x-rays. The X-Ray specialist will also review them. If there is a change in the findings, you will be notified in 48 hours when at all possible. 3. A lab test or culture has been done, your results will be reviewed and you will be notified if you need a change in treatment. ADDITIONAL INSTRUCTIONS AND INFORMATION: 1. Your care today has been supervised by a physician who is specially trained in emergency care. Many problems require more than one evaluation for a complete diagnosis and treatment. We recommend that you schedule your follow up appointment as recommended to ensure complete treatment of you illness or injury. If you are unable to obtain follow up care and continue to have a problem, or if your condition worsens, we recommend that you return to the ED. 2. We are not able to safely determine your condition over the phone nor are we able to give sound medical advice over the phone. For these safety reasons, if you call for medical advice we will ask you to come to the ED for further evaluation. 3. If you have any questions regarding these discharge instructions please call the ED at [phone]. SAFETY INFORMATION: In the interest of safety, wellness, and injury prevention; we encourage you to wear your sealbelt, if you smoke; quite smoking, and we encourage family to use a protective helmet for bicycling and other sporting events that present an increased risk for head injury. IF YOUR SYMPTOMS WORSEN OR NEW SYMPTOMS DEVELOP, OR YOU HAVE CONCERNS ABOUT YOUR CONDITION; OR IF YOUR CONDITION WORSENS WHILE YOU ARE WAITING FOR YOUR FOLLOW UP APPOINTMENT; EITHER CONTACT YOUR PRIMARY CARE DOCTOR, THE PHYSICIAN WHOSE NAME AND NUMBER YOU WERE GIVEN, OR RETURN TO THE ED IMMEDIATELY. Scripts Azithromycin (ZITHROMAX) 500 Mg Tablet 1 TAB PO DAILY for colitis for 5 Days, #5 TAB 0 Refills Prov: JANET REDDY APRN 11/12/20 JANET RDEDY APRN Nov 12, 2020 19:08 PABLO NORIEGA DO Nov 15, 2020 06:11
[2020-11-12] MEDS ORDERED: ONDANSETRON PF 4 MG/2 ML VIAL. IVP ONE (19:15)
[2020-11-12] MEDS ORDERED: IV NORMAL SALINE 1,000ML 1,000 ML IV ONE (19:15)
[2020-11-12] MEDS ORDERED: IOHEXOL 300 MG/ML 75 ML VIAL. IV ONE (19:15)
[2020-11-12 19:40] LABS: BASO % 0 % (0-3); EOS # 0.2 x10^3/uL (0.0-0.7); EOS % 1 % (0-3); HEMATOCRIT 37.2 % (36.0-47.0); HEMOGLOBIN 12.8 g/dL (12.0-15.5); LYMPH # 3.9 x10^3/uL (1.0-4.8); LYMPH % 33 % (24-48); MEAN CORPUSCULAR HEMOGLOBIN 30 pg (25-35); MEAN CORPUSCULAR HGB CONC 35 g/dL (31-37); MEAN CORPUSCULAR VOLUME 88 fL (79-100); MONO # 1.2 x10^3/uL (0.0-1.1); MONO % 10 % (0-9); NEUT # 6.6 x10^3uL (1.8-7.7); NEUT % 55 % (31-73); PLATELET COUNT 257 x10^3/uL (140-400); RED BLOOD COUNT 4.25 x10^6/uL (3.50-5.40); RED CELL DISTRIBUTION WIDTH 12.2 % (11.5-14.5); WHITE BLOOD COUNT 11.9 x10^3/uL (4.0-11.0)
--- NOTE | 2020-11-12 19:44 | RAD ---
Exam: CT of abdomen and pelvis with contrast INDICATION: Lower abdominal pain TECHNIQUE: Sequential axial images through the abdomen and pelvis obtained following the administrati on of 75 mL of Omni 300 IV contrast. Sagittal and coronal reformatted images were reconstructed from the axial data and reviewed. Exposure: One or more of the following in the visualized dose reduction techniques were utilized for this examination: 1. Automated exposure control 2. Adjustment of the MA and/or KV according to patient size 3. Use of iterative of reconstructive technique Comparisons: 01/17/2017 FINDINGS: Heart size is normal. No pericardial. Visualized lung bases are clear. No pleural effusion. Liver, spleen, pancreas and adrenals are unremarkable. Gallbladder surgically absent. No perinephric inflammation or hydronephrosis. No renal or ureteral calculi are identified. Bladder is decompressed not well evaluated. Uterus not enlarged. Cystic lesion at the right adnexa me asuring up to 3.6 cm in long axis. There is mild wall thickening involving the colon with adjacent stranding. Small bowel is unremarkabl e. Small amount of free fluid noted in the pelvis. No free intra-abdominal air. Abdominal aorta has a normal course and caliber. No enlarged intra-abdominal lymph nodes are identified. No suspicious osseous lesions or acute fractures. IMPRESSION: 1. Findings of diffuse colitis may be infectious or inflammatory in etiology. 2. Cystic lesion at the right adnexa measuring 3.6 cm in diameter favored represent cyst within the right ovary. Electronically signed by: Taty Ramirez MD (11/12/2020 7:41 PM) [facility]
[2020-11-12 19:47] LABS: CALCIUM 8.7 mg/dL (8.5-10.1); GFR 67.6; POTASSIUM 3.2 mmol/L (3.5-5.1)
[2020-11-12 19:50] LABS: BACTERIA,URINE FEW /HPF (0-FEW); BILIRUBIN,URINE SMALL (NEG); CLARITY,URINE CLEAR; COLOR,URINE YELLOW; GLUCOSE,URINE NEG (NEG); NITRITE,URINE NEG (NEG); RBC,URINE OCC /HPF (0-2); SQUAMOUS EPITHELIAL CELL,UR MOD /LPF; UROBILINOGEN,URINE 0.2 mg/dL (0.2 mg/dL); WBC,URINE OCC /HPF (0-4)
[2020-11-12 19:55] LABS: ALBUMIN 3.8 g/dL (3.4-5.0); TOTAL BILIRUBIN 0.3 mg/dL (0.2-1.0); TOTAL PROTEIN 7.7 g/dL (6.4-8.2)
[2020-11-12] MEDS ORDERED: POTASSIUM CHLORIDE 20 MEQ TABLET.ER. PO ONE (20:00)
[2020-11-12] MEDS ORDERED: AZITHROMYCIN 250 MG TABLET. PO ONE (20:00)
[2020-11-12] MEDS ORDERED: AZIT500T PO (20:26)
[2020-11-12 20:44] LABS: FECAL OB PT POSITIVE (NEG)
[2020-11-13] MEDS ORDERED: HYDR-2155 PO ×2 (09:08→09:11)
[2020-11-13] MEDS ORDERED: METR500T PO (09:08)
[2020-11-13] MEDS ORDERED: ONDA4TAB12 PO (09:08)
[2020-11-13] MEDS ORDERED: HYOS0.1265 SL (09:08)
[2020-11-13] MEDS ORDERED: CIPR500T94 PO (09:08)
[2020-11-13] MEDS ORDERED: PRED20TA PO (09:08)
[2020-11-13] MEDS ORDERED: AMOX1TAB61 PO (16:50)
== END 2020-11-12 20:39 | disposition home or self-care (01) ==
LOC: ER 16:55
DX: R10.32 Left lower quadrant pain (principal); R19.7 Diarrhea, unspecified; R10.31 Right lower quadrant pain; R63.0 Anorexia; G43.909 Migraine, unspecified, not intractable, without status migrainosus
CPT/HCPCS: 36415; 74177; 80053; 81001; 81025; 82274; 83690; 85025; 96361; 96374; 96375; 99285; J2405; J3010; J7030; Q9967

== ENCOUNTER 2020-11-13 07:47 | Emergency (ER) | payer OTHER ==
[~2020-11-13] VITALS: Ht 160 cm; Wt 63.6 kg
[~2020-11-13 07:47] MED LIST changes: +AZIT500T PO
[2020-11-13] MEDS ORDERED: KETOROLAC 15 MG/ML VIAL. IVP ONE (08:00)
[2020-11-13] MEDS ORDERED: FAMOTIDINE 20 MG/2 ML VIAL IVP ONE (08:00)
[2020-11-13] MEDS ORDERED: ONDANSETRON PF 4 MG/2 ML VIAL. IVP ONE (08:00)
[2020-11-13] MEDS ORDERED: DEXAMETHASONE SOD PHOS 10 MG/ML VIAL. IVP ONE (08:00)
[2020-11-13] MEDS ORDERED: IV NORMAL SALINE 1,000ML 1,000 ML IV ONE (08:15)
[2020-11-13 08:28] LABS: BASO % 0 % (0-3); EOS # 0.2 x10^3/uL (0.0-0.7); EOS % 2 % (0-3); HEMATOCRIT 36.7 % (36.0-47.0); HEMOGLOBIN 12.6 g/dL (12.0-15.5); LYMPH # 1.8 x10^3/uL (1.0-4.8); LYMPH % 16 % (24-48); MEAN CORPUSCULAR HEMOGLOBIN 30 pg (25-35); MEAN CORPUSCULAR HGB CONC 34 g/dL (31-37); MEAN CORPUSCULAR VOLUME 88 fL (79-100); MONO # 1.2 x10^3/uL (0.0-1.1); MONO % 11 % (0-9); NEUT # 7.8 x10^3uL (1.8-7.7); NEUT % 71 % (31-73); PLATELET COUNT 207 x10^3/uL (140-400); RED BLOOD COUNT 4.18 x10^6/uL (3.50-5.40); RED CELL DISTRIBUTION WIDTH 12.4 % (11.5-14.5); WHITE BLOOD COUNT 10.9 x10^3/uL (4.0-11.0)
[2020-11-13 08:31] LABS: CALCIUM 8.3 mg/dL (8.5-10.1); CREATININE 0.9 mg/dL (0.6-1.0); GFR 76.3; POTASSIUM 4.1 mmol/L (3.5-5.1)
[2020-11-13 08:36] LABS: ALBUMIN 3.4 g/dL (3.4-5.0); MAGNESIUM 1.8 mg/dL (1.8-2.4); TOTAL BILIRUBIN 0.4 mg/dL (0.2-1.0); TOTAL PROTEIN 6.9 g/dL (6.4-8.2)
[2020-11-13] MEDS ORDERED: metroNIDAZOLE 500 MG TABLET PO ONE (09:00)
[2020-11-13] MEDS ORDERED: CIPROFLOXACIN HCL 500 MG TABLET PO ONE (09:00)
[2020-11-13] MEDS ORDERED: PRED20TA PO (09:08)
[2020-11-13] MEDS ORDERED: METR500T PO (09:08)
[2020-11-13] MEDS ORDERED: HYDR-2155 PO ×2 (09:08→09:11)
[2020-11-13] MEDS ORDERED: CIPR500T94 PO (09:08)
[2020-11-13] MEDS ORDERED: HYOS0.1265 SL (09:08)
[2020-11-13] MEDS ORDERED: ONDA4TAB12 PO (09:08)
--- NOTE | 2020-11-13 09:13 | PHYS DOC ---
Past History Past Medical History: Depression, Endometriosis, Migraines, Other Additional Past Medical Histor: [facility] Past Surgical History: Other Additional Past Surgical Histo: abd lap Smoking: Non-smoker Alcohol Use: None Drug Use: None General Adult EDM: Chief Complaint: ABDOMINAL PAIN HPI: HPI: 25 year old female presents with history of diffuse abdominal pain x 5 days. Patient seen yesterday for same and found to have colitis on CT imaging. Patient was prescribed azithromycin but has not picked up the prescription. Reports some associated nausea and diarrhea. Reports has had such frequent diarrhea last night that now she noted bright red blood. Reports pain not well controlled with ibuprofen and/tylenol. Reports last took tyenol at 0300 this AM. Denies dysuria. Per [employer] review, UA unremarkable and Upreg negative. Review of Systems: Review of Systems: Constitutional: Denies fever or chills; reports generalized malaise Eyes: Denies redness or eye pain HENT: Denies nasal congestion or sore throat Respiratory: Denies cough or shortness of breath Cardiovascular: Denies chest pain or palpitations GI: Reports diffuse abdominal pain, nausea, hematochezia, and diarrhea; denies vomiting : Denies dysuria or hematuria Musculoskeletal: Denies back pain or joint pain Integument: Denies rash or skin lesions Neurologic: Denies headache, focal weakness or sensory changes Complete systems were reviewed and found to be within normal limits, except as documented in this note. Current Medications: Current Meds: Current Medications Medications (Trade) Dose Ordered Sig/Pipo Start Time Stop Time Status Last Admin Dose Admin Ciprofloxacin (Cipro) 500 mg 1X ONCE 11/13/20 09:00 11/13/20 09:01 UNV Dexamethasone Sodium Phosphate (Decadron) 10 mg 1X ONCE 11/13/20 08:00 11/13/20 08:02 DC 11/13/20 08:07 10 MG Famotidine (Pepcid Vial) 20 mg 1X ONCE 11/13/20 08:00 11/13/20 08:02 DC 11/13/20 08:07 20 MG Fentanyl Citrate (Fentanyl 2ml Vial) 50 mcg 1X ONCE 11/13/20 09:00 11/13/20 09:01 UNV Ketorolac Tromethamine (Toradol 15mg Vial) 15 mg 1X ONCE 11/13/20 08:00 11/13/20 08:02 DC 11/13/20 08:07 15 MG Metronidazole (Flagyl) 500 mg 1X ONCE 11/13/20 09:00 11/13/20 09:01 UNV Ondansetron HCl (Zofran) 4 mg 1X ONCE 11/13/20 08:00 11/13/20 08:02 DC 11/13/20 08:07 4 MG Sodium Chloride 1,000 ml @ 1,000 mls/hr 1X ONCE 11/13/20 08:15 11/13/20 09:14 11/13/20 08:06 1,000 MLS/HR Allergies: Allergies: Allergies Coded Allergies Type Severity Reaction Last Updated Verified No Known Drug Allergies 11/13/20 No Physical Exam: PE: Constitutional: Well developed, well nourished, no acute distress, non-toxic appearance HENT: Normocephalic, atraumatic Eyes: Conjunctiva normal, no discharge Neck: Normal range of motion, no tenderness, supple Lungs & Thorax: No respiratory distress, equal chest rise and fall Abdomen: Soft, mild diffuse tenderness, no guarding/reboun tenderness/distention Skin: Warm, dry, no erythema, no rash Back: No tenderness, no CVA tenderness Extremities: No tenderness, ROM intact, no edema Neurologic: Alert and oriented X 3, no focal deficits noted Psychologic: Affect normal, judgment normal Current Patient Data: Labs: Laboratory Tests Test 11/13/20 08:04 White Blood Count 10.9 x10^3/uL (4.0-11.0) Red Blood Count 4.18 x10^6/uL (3.50-5.40) Hemoglobin 12.6 g/dL (12.0-15.5) Hematocrit 36.7 % (36.0-47.0) Mean Corpuscular Volume 88 fL (79-100) Mean Corpuscular Hemoglobin 30 pg (25-35) Mean Corpuscular Hemoglobin Concent 34 g/dL (31-37) Red Cell Distribution Width 12.4 % (11.5-14.5) Platelet Count 207 x10^3/uL (140-400) Neutrophils (%) (Auto) 71 % (31-73) Lymphocytes (%) (Auto) 16 % (24-48) L Monocytes (%) (Auto) 11 % (0-9) H Eosinophils (%) (Auto) 2 % (0-3) Basophils (%) (Auto) 0 % (0-3) Neutrophils # (Auto) 7.8 x10^3uL (1.8-7.7) H Lymphocytes # (Auto) 1.8 x10^3/uL (1.0-4.8) Monocytes # (Auto) 1.2 x10^3/uL (0.0-1.1) H Eosinophils # (Auto) 0.2 x10^3/uL (0.0-0.7) Basophils # (Auto) 0.0 x10^3/uL (0.0-0.2) Sodium Level 140 mmol/L (136-145) Potassium Level 4.1 mmol/L (3.5-5.1) Chloride Level 105 mmol/L (98-107) Carbon Dioxide Level 23 mmol/L (21-32) Anion Gap 12 (6-14) Blood Urea Nitrogen 7 mg/dL (7-20) Creatinine 0.9 mg/dL (0.6-1.0) Estimated GFR (Cockcroft-Gault) 76.3 BUN/Creatinine Ratio 8 (6-20) Glucose Level 83 mg/dL (70-99) Lactic Acid Level 0.7 mmol/L (0.4-2.0) Calcium Level 8.3 mg/dL (8.5-10.1) L Magnesium Level 1.8 mg/dL (1.8-2.4) Total Bilirubin 0.4 mg/dL (0.2-1.0) Aspartate Amino Transferase (AST) 11 U/L (15-37) L Alanine Aminotransferase (ALT) 22 U/L (14-59) Alkaline Phosphatase 65 U/L (46-116) Total Protein 6.9 g/dL (6.4-8.2) Albumin 3.4 g/dL (3.4-5.0) Albumin/Globulin Ratio 1.0 (1.0-1.7) Lipase 31 U/L (73-393) L Vital Signs: Vital Signs Date Time Temp Pulse Resp B/P (MAP) Pulse Ox O2 Delivery O2 Flow Rate FiO2 11/13/20 08:42 88 18 115/68 (84) 100 Room Air 11/13/20 07:47 97.7 EKG: EKG: [] Radiology/Procedures: Radiology/Procedures: [] Heart Score: C/O Chest Pain: N/A Course & Med Decision Making: Course & Med Decision Making Pertinent Lab studies reviewed. (See chart for details) Patient presents with diffuse abdominal discomfort. History of recently being seen yesterday for same. Patient reports throughout the night she has had progressive diarrhea to the point she now has some rectal bleeding. Abdomen nonperitoneal. Imaging reviewed from yesterday noted mild colonic wall thickening consistent for colitis. Patient was prescribed azithromycin but has not yet picked up the prescription. Patient is afebrile. Symptomatic treatment provided. IV fluid hydration given. Labs obtained and posted to chart. Decision to change empiric antibiotics. Empiric antibiotics initiated with Cipro and Flagyl. We will also treat with steroid. Patient does not have known history of ulcerative colitis or Crohn's. Patient stable for discharge with outpatient follow-up with PCP/GI. GI referral provided. Discussed findings and plan with patient, who acknowledges understanding and agreement. Dragon Disclaimer: Dragon Disclaimer: This electronic medical record was generated, in whole or in part, using a voice recognition dictation system. Departure Departure: Impression: Primary Impression: Colitis Additional Impressions: Nausea Diarrhea Qualified Codes: R19.7 - Diarrhea, unspecified Disposition: HOME / SELF CARE / HOMELESS Condition: STABLE Referrals: MARTÍNEZ LEZAMA (PCP) JAYESH GONZALEZ MD Patient Instructions: Clear Liquid Diet, [id number], Colitis, Diet for Diarrhea, Adult Additional Instructions: Do not fill previously prescribed prescription for azithromycin. Scripts Hydrocodone Bit/Acetaminophen (HYDROCODONE-APAP 5-325 ) 1 Each Tablet 0.5-1 TAB PO PRN Q6HRS PRN for PAIN, #10 TAB 0 Refills Prov: EFFIE ROMANO DO 11/13/20 Metronidazole (FLAGYL) 500 Mg Tablet 1 TAB PO TID for Colitis for 7 Days, #21 TAB Prov: EFFIE ROMANO DO 11/13/20 Ciprofloxacin Hcl (CIPRO) 500 Mg Tablet 1 TAB PO BID for Colitis, #14 TAB Prov: EFFIE ROMANO DO 11/13/20 Hyoscyamine Sulfate (LEVSIN-SL) 0.125 Mg Tab.subl 0.125 MG SL Q4-6HRS PRN for PAIN, #14 TAB Prov: EFFIE ROMANO DO 11/13/20 Prednisone (PREDNISONE) 20 Mg Tablet 2 TAB PO DAILY for Colitis, #8 TAB Start this prescription tomorrow, Thu11/14/20 Prov: EFFIE ROMANO DO 11/13/20 Ondansetron (ONDANSETRON ODT) 4 Mg Tab.rapdis 1 TAB PO PRN Q6-8HRS PRN for NAUSEA, #16 TAB Prov: EFFIE ROMANO DO 11/13/20 EFFIE ROMANO DO Nov 13, 2020 09:13
[2020-11-13 09:30] VITALS: BP 116/72
[2020-11-13] MEDS ORDERED: AMOX1TAB61 PO (16:50)
== END 2020-11-13 09:30 | disposition home or self-care (01) ==
LOC: ER 07:47
DX: K52.9 Noninfective gastroenteritis and colitis, unspecified (principal); R19.7 Diarrhea, unspecified; R10.84 Generalized abdominal pain; G43.909 Migraine, unspecified, not intractable, without status migrainosus; F32.9 Major depressive disorder, single episode, unspecified
CPT/HCPCS: 36415; 80053; 83605; 83690; 83735; 85025; 96361; 96374; 96375; 99285; J1100; J1885; J2405; J3010; J3490; J7030